=== PATIENT | female | born 1990 | race Caucasian/White ===

== ENCOUNTER 2025-05-07 13:17 | Outpatient (AMB) | payer OTHER, SELFPAY ==
--- NOTE | 2025-05-07 13:18 | A.PHYSOV_ITS ---
Vital Signs 05/07/25 13:19 Height 4 ft 9 in Weight 117 lb BMI 25.3 Intake Visit Reasons: 1M FUV Intake Note: 35 year old female here today for follow up on headaches. Patient only complaint today is head pressure Underwriting Technician Required: No Allergies No Known Allergies Allergy (Verified 05/07/25 13:20) Medication List - Last Reconciled 05/07/25 by Pelon Navarro DO bupropion HCl XL 150 mg PO DAILY levonorgestrel (Plan B One-Step) mg PO pantoprazole 20 mg PO DAILY propranolol mg PO topiramate 50 mg (2 x 25 mg) PO BEDTIME HPI Comments Details: History of Present Illness The patient is a 35-year-old female presenting with persistent headaches. She has experienced headaches for over 20 years, initially occurring 1 to 3 times a month, but recently increasing to a weekly or more frequent basis. The headaches are accompanied by nausea and have required emergency room visits for Toradol injections. The patient has been treated with sumatriptan in both pill and nasal spray forms, but these have become less effective. She reports headaches that may be occipital or cervicogenic in nature. Her medical history includes a childhood diagnosis of spinal meningitis and major depression, for which she is currently taking bupropion. She admits to social alcohol use, smokes about 3 cigarettes a day, and uses marijuana. She consumes about one cup of coffee daily. A CT scan was performed and found to be unremarkable. Her headaches have shown improvement with the use of 50 mg of topiramate at bedtime. During her last appointment on March 27, 2025, she was started on propranolol. Patient has not been taking propranolol, she continues to take topiramate. She has been taking topiramate in the morning instead of nighttime. Overall her headaches have been feeling better. She reports occasional heavy feeling in her head, however has not had severe migraines. Pain Description - Onset: Headaches have been present for over 20 years. - Frequency: Initially 1 to 3 times a month, now weekly or more frequent. - Associated symptoms: Nausea accompanies headaches. - Location: Possible occipital or cervicogenic origin. Results - Imaging: CT scan was unremarkable. [facility] Social History Alcohol intake: current Comment: socially Patient Tobacco Use Status: Current everyday Tobacco user Substance Use Type: Marijuana Review of Systems Narrative Review of Systems - Neurological: Reports persistent headaches with nausea. - Psychiatric: Reports history of major depression. Patient denies uncontrolled depression or suicidal ideation at this time Patient denies any change in bowel bladder habits, she denies any fever or chills Physical Exam Exam Exam: Physical Exam Patient appears to be in no acute distress, appropriately conversant and oriented. She was able to ambulate without antalgia. Cranial nerves are intact. Neurologic examination of upper and lower extremities was nonfocal. Spurling maneuver was negative. Lhermitte's sign was negative. Mild occipital tenderness to palpation. Cervical range of motion was preserved. Patient demonstrated an upper motor neuron signs. Vital Signs: BMI result Body Mass Index 25.3 Assessment & Plan Assessment & Plan (1) Migraine: Code(s): G43.909 - Migraine, unspecified, not intractable, without status migrainosus Category: Medical (2) Cervicocranial syndrome: Code(s): M53.0 - Cervicocranial syndrome Category: Medical Plan Pain Management - Affect: Major depression, currently managed with bupropion. - Analgesia: Sumatriptan (pills and nasal spray) and topiramate 50 mg at bedtime; propranolol started recently. - Adverse Effects: Sumatriptan has become less effective. - Activities of Daily Living: Headaches have required emergency room visits. - Aberrant Drug Related Behaviors: None reported. Plan Patient was informed and verbally consented to the use of an ambient scribe for clinic note documentation during this visit. 1. Persistent Headache The patient has been experiencing persistent headaches for over 20 years, with recent increases in frequency to weekly or more often. She has been treated with sumatriptan, which has become less effective, and has recently been started on propranolol. Topiramate 50 mg at bedtime has shown some improvement in her headache symptoms. 2. Major Depression The patient has a history of major depression and is currently managed with bupropion. Discussion Notes Patient Instructions Medications: New topiramate 50 mg (2 x 25 mg) PO BEDTIME 60 tabs 5RF Migraine G43.909 - Migraine, unspecified, not intractable, without status migrainosus, M53.0 - Cervicocranial syndrome Coding Level of Care Code Est Pt Level 3 (57405) Complex EM visit Add On G2211 Diagnoses Migraine G43.909 Cervicocranial syndrome M53.0
[2025-05-07 13:19] VITALS: BMI 25.3
--- OUTSIDE RECORDS SUMMARY | 2025-05-07 14:58 | XMS_ITS | Clinical Summary ---
Author Organization [facility] Address [address] [place] [id number] Phone Care Team Providers Care Radio Television Technical Director Name Role Phone Unavailable Primary Care Provider Unavailabl e Immunizations Immunization Administration Dates Next Due DTaP 07/05/1994, 1,1989,08/22,1989 HPV, Quadrivalent 12/06/2007,09/28/2007 Hep B, ped/adol 01/10/2001,11/11/1999,08/24/1999 Hib (PRP-T) 09/08/1990 MMR 01/02/1995,09/08/1990 Meningococcal Conj (Menactra) MCV4P 09/28/2007 OPV 07/05/1994, 1,1989,06/18 Td (adult) (Tenivac), 5 Lf t etanus toxoid, PF, adsorbed 01/10/2001 Tdap 09/28/2007 Varicella 11/25/1992 Family History Relation Name Status Comments Father Alive disabled due to Mental status age: 38 Maternal Grandfather OK at 4 7 yrs old and overweight Maternal Grandmother Alive empeysm a, hypertension Mother Alive DM, hyperlipide khoi , asthma allergies overweight age: 40 Other Alive Siblings: healt hy Paternal Grandfather heart f ailure Paternal Grandmother Alive substan ce abuse and related health problems Social History Tobacco Use Types Packs/Day Years Used Date Smoking Tobacco: Never Assessed Comments Unknown Sex and Gender Information Value Date Recorded Sex Assigned at Not on file Legal Sex Female 6:09 PM EDT Gender Identity Not on file Sexual Orientation Not on file Plan of Treatment Health Maintenance Due Date Last Done Comments Varicella Vaccines (2 of 2 - 2-dose childhood series) 01/30/1995 11/25/1992 HPV Vaccines (3 - 3-dose series) 03/29/2008 12/06/2007, 09/28/2007 DTaP,Tdap,and Td Vaccines (7 - Td or Tdap) 09/27/2017 09/28/2007, 01/10/2001, 07/05/1994, Additional history exists Influenza Vaccines (#1) 2025 COVID-19 Vaccine () 02/25/2025 HIB Vaccines Completed 09/08/1990 IPV Vaccines Completed 07/05/1994, 0506/1990, 1989, Additional history exists MMR Vaccines Completed 01/02/1995, 09/08/1990 Hepatitis B Vaccines Completed 01/10/2001, 11/11/1999, 08/24/1999 Meningococcal Vaccine Completed 09/28/2007 Hepatitis A Vaccines Aged Out No long er eligible based on patient's age to complete this topic Men B Vaccine Aged Out No longer elig ible based on patient's age to complete this topic Pneumococcal Vaccine Aged Out No long er eligible based on patient's age to complete this topic
--- OUTSIDE RECORDS SUMMARY | 2025-05-07 14:58 | XMS_ITS | Encounter Summary ---
Author Organization [facility] Address [address] [place] [phone] Phone Care Team Providers Care Queen Producer Name Role Phone Unavailable Primary Care Provider Unavailabl e Encounter Details Date Type Department Care Team (Late st Contact Info) Description 11/13/2017 Conversion Encounter [facility] [address] [id number] Social History Tobacco Use Types Packs/Day Years Used Date Smoking Tobacco: Never Assessed Comments Unknown Sex and Gender Information Value Date Recorded Sex Assigned at Not on file Legal Sex Female 6:09 PM EDT Gender Identity Not on file Sexual Orientation Not on file documented as of this encounter Plan of Treatment Not on file documented as of this encounter Visit Diagnoses Not on filedocumented in this encounter
== END 2025-05-07 13:35 | disposition home or self-care (01) ==
LOC: HO.HPHYS 13:18
PROVIDERS: PCP Internal Medicine; Visit Provider Physical Medicine & Rehabilitation
DX: G43.909 Migraine, unspecified, not intractable, without status migrainosus (principal); M53.0 Cervicocranial syndrome
CPT/HCPCS: 99214; G2211